=== PATIENT | male | born 1995 | race Caucasian/White ===

== ENCOUNTER 2023-06-18 18:32 | Emergency (ER) | payer BC ==
[~2023-06-18] VITALS: Ht 167.6 cm; Wt 95.3 kg
[2023-06-18] MEDS ORDERED: KETO10TA2 PO (19:57)
[2023-06-18 20:04] VITALS: BP 127/78; TEMP 98.4; O2SAT 100
== END 2023-06-18 20:04 | disposition home or self-care (01) ==
LOC: ER 18:38
DX: S93.402A Sprain of unspecified ligament of left ankle, initial encounter (principal); X58.XXXA Exposure to other specified factors, initial encounter; Y93.89 Activity, other specified; Y92.89 Other specified places as the place of occurrence of the external cause; Y99.8 Other external cause status
CPT/HCPCS: 73610-TC; 73630-TC